=== PATIENT | female | born 1960 | race African-American/Black ===

== ENCOUNTER 2022-09-15 17:54 | Emergency (ER) | payer MEDICAID, OTHER ==
[~2022-09-15] VITALS: Ht 157.5 cm; Wt 63.0 kg
[2022-09-15] MEDS ORDERED: ACETAMINOPHEN 325MG TABLET PO ONE (18:45)
[2022-09-15] MEDS ORDERED: ONDANSETRON HCL 4MG TABLET PO ONE (18:45)
[2022-09-15] MEDS ORDERED: IBUPROFEN 400MG TABLET PO ONE (18:45)
[2022-09-15] MEDS ORDERED: IBUP-2028 MT (18:46)
[2022-09-15 19:18] VITALS: BP 112/75
== END 2022-09-15 19:20 | disposition home or self-care (01) ==
LOC: ER 18:04
DX: S09.8XXA Other specified injuries of head, initial encounter (principal); M54.2 Cervicalgia; M54.89 Other dorsalgia; M25.519 Pain in unspecified shoulder; V49.59XA Passenger injured in collision with other motor vehicles in traffic accident, initial encounter; Y93.89 Activity, other specified; Y92.414 Local residential or business street as the place of occurrence of the external cause
CPT/HCPCS: 99284; Q0162

== ENCOUNTER 2024-07-17 15:07 | Emergency (ER) | payer MEDICAID, OTHER ==
[~2024-07-17] VITALS: Ht 162.6 cm; Wt 67.1 kg
[~2024-07-17 15:07] MED LIST: IBUP-2028 MT
[2024-07-17 15:21] VITALS: BP 190/125; PULSE 105; RESP 16; TEMP 98.5; O2SAT 99
[2024-07-17] MEDS: LIDOCAINE 5% PATCH TOP SCH (16:11)
[2024-07-17] MEDS: CYCLOBENZAPRINE 10MG TABLET PO ONE (16:11)
[2024-07-17] MEDS: KETOROLAC 15MG/ML VIAL IM ONE (16:11)
[2024-07-17] MEDS ORDERED: NAPR-1176 MT (17:14)
[2024-07-17] MEDS ORDERED: LIDO700A15 TP (17:14)
== END 2024-07-17 17:42 | disposition home or self-care (01) ==
LOC: ER 15:07
DX: S09.90XA Unspecified injury of head, initial encounter (principal); M54.2 Cervicalgia; E11.9 Type 2 diabetes mellitus without complications; I10 Essential (primary) hypertension; Z79.1 Long term (current) use of non-steroidal anti-inflammatories (NSAID); V49.49XA Driver injured in collision with other motor vehicles in traffic accident, initial encounter; Y93.89 Activity, other specified; Y92.89 Other specified places as the place of occurrence of the external cause; Y99.8 Other external cause status
CPT/HCPCS: 99283; 96372; J1885